=== PATIENT | male | born 1965 | race Caucasian/White ===

== ENCOUNTER 2020-09-23 15:45 | Inpatient (IN) | payer BC ==
[~2020-09-23] VITALS: Ht 193 cm; Wt 92.6 kg
--- NOTE | 2020-09-23 21:50 | NUR ---
PT ARRIVED AT APPROXIMATELY 2009 TO THE CCU. PT WAS BROUGHT DOWN BY ED RN AND BOX SPRING MAKER VIA STRETCHER WITH ALL BELONGINGS. PT WAS ON 2L O2 NC AND WAS STILL DROWSY. PT WAS MOVED OVER TO CCU BED WITHOUT DIFFICULTY. PT WAS MILDY RESTLESS AND WAS REPOSITIONING IN BED AND TURNING BUT WAS STILL DROWSY AND NOT ANSWERING QUESTIONS. IV FLUIDS AND MEDICATIONS WERE STARTED (SEE NOV). PT WAS GIVEN PRN DEXTROSE AT 2027 DUE TO A BLOOD SUGAR OF 64. PT BLOOD SUGAR WAS CHECKED AGAIN AT 2049 AND WAS 113. PT JENKINS TEMP HAS REMAINED 98.3 AND IS ON ROOM AIR WITH SATURATIONS AROUND 95%. PT BRIEFLY WOKE DURING THE ADMISSION AND GAVE SIMPLE ONE WORD ANSWERS BUT QUICKLY RETURNED TO SLEEP AND HAS REMAINED ASLEEP/DROWSY. NO FURTHER NEEDS ASSESSED AT THIS TIME, WILL CONTINUE PLAN OF CARE. CALL LIGHT WITHIN REACH, BED IN LOWEST POSITION. IV FLUIDS AND MEDICATIONS INFUSING ORDERED.
--- NOTE | 2020-09-23 22:51 | NUR ---
PT IN BED SLEEPING, PT BRIEFLY WAKES BUT ONLY MUMBLES/GROANS AND GOES BACK TO SLEEP. PT STILL REPOSITIONING HIMSELF IN BED WELL BY ROLLING OVER AND CHANGING POSITIONS IN BED. BLOOD GLUCOSE RECHECKED AND WAS WITHIN NORMAL LIMITS (87). PT SPO2 AT 95% WHILE ON ROOM AIR, JENKINS TEMP 98.3. NO FURTHER NEEDS ASSESSED AT THIS TIME, IV FLUIDS INFUSING AT ORDERED RATE, WILL CONTINUE PLAN OF CARE. CALL LIGHT WITHIN REACH, BED IN LOWEST POSITION.
--- NOTE | 2020-09-23 23:49 | NUR ---
PT LAYING IN BED SLEEPING. IV FLUIDS INFUSING ORDERED. NEW BAG OF KCL STARTED (BAG 12/14). PT BRIEFLY WOKE AND FOLLOWED A SIMPLE COMMAND TO STRAIGHTEN ARM FOR IV FLUIDS. PT THEN QUICKLY RETURNED BACK TO SLEEP. SPO2 AT 98% ON ROOM AIR, JENKINS TEMPERATURE AT 98.4. PT STILL REPOSITIONING HIMSELF IN BED. PT IN NO APPARENT DISTRESS AT THIS TIME. WILL CONTINUE PLAN OF CARE. CALL LIGHT WITHIN REACH, BED IN LOWEST POSITION.
--- NOTE | 2020-09-24 00:30 | NUR ---
THIS RN IN TO ASSESS PT. PT SLEEPING IN BED, STILL DROWSY AND WAKING ONLY BRIEFLY TO VOICE. IV POTASSIUM COMPLETE AND IVF INFUSING AT ORDERED RATE (SEE MAR). PT ON ROOM AIR WITH AN SPO2 OF 99%. JENKINS TEMP AT 98.5. PT IS IN NO APPARENT DISTRESS AT THIS TIME. WILL CONTINUE PLAN OF CARE, CALL LIGHT WITHIN REACH, BED IN LOWEST POSITION.
--- NOTE | 2020-09-24 03:14 | NUR ---
PT SLEEPING IN BED AT THIS TIME. RESPIRATIONS EVEN AND UNLABORED, PT SNORING. SPO2 AT 95% ON ROOM AIR, JENKINS TEMP 98.4. PT LEFT UNDISTURBED AT THIS TIME AND IS IN NO APPARENT DISTRESS, WILL CONTINUE PLAN OF CARE.
--- NOTE | 2020-09-24 04:24 | NUR ---
IN TO ASSESS PT. PT ABLE TO WAKE TO HIS NAME AND ANSWER ONE WORD ANSWERS. PT ORIENTED TO SELF, LOCATION, AND MONTH BUT NOT EVENT. WHEN ASKED HOW HE FELT PT MUMBLED AND DID NOT SPEAK COHERENTLY. WHEN ASKED IF PT WAS IN PAIN PATIENT WAS ABLE TO ANSWER NO. PT ABLE TO FOLLOW COMMANDS SUCH REACHING UP WITH HANDS, WIGGLING DIGITS, TAKE DEEP BREATHES, AND FOLLOW MY FINGERS WITH HIS EYES. PT QUICKLY WENT BACK TO SLEEP AFTER ASSESSMENT. SPO2 AT 94% ON ROOM AIR, JENKINS TEMP AT 98.5. PT IN NO APPARENT DISTRESS AND IS NOW SLEEPING AGAIN IN BED. CALL LIGHT IN REACH, BED IN LOWEST POSITION. WILL CONTINUE PLAN OF CARE.
--- NOTE | 2020-09-24 06:20 | NUR ---
PT SLEEPING IN BED. RESPIRATIONS EVEN AND UNLABORED, PT SNORING. SPO2 AT 95% ON ROOM AIR. JENKINS TEMP AT 98.6 F. PT LEFT UNDISTURBED, WILL CONTINUE PLAN OF CARE.
--- NOTE | 2020-09-24 07:30 | NUR ---
REPORT RECIEVED, PATIENT IS ASLEEP. NO DISTRESS NOTED.
--- NOTE | 2020-09-24 08:00 | NUR ---
ASSESSMENT DONE, IS NOW AWAKE, ALERT AND COOPERATIVE. DOES NOT REMEMBER CHAIN OF EVENTS YESTERDAY. TALKED WITH PATIENT ABOUT POC FOR DAY IS UNDERSTANDING. IVF PATENT. JENKINS CATH PATENT. C/O RIGHT KNEE PAIN, WILL UPDATE MD REGARDING KNEE PAIN. WATER GIVEN, DENIES NAUSEA.
--- NOTE | 2020-09-24 10:00 | NUR ---
Spoke with Tarik. He lives in [place] in an RV he build himself. He denies steps or issues getting into his RV. He works at [employer]. We discussed his drug use and + tox screen for meth., Marijuana, alcohol. He also had mushrooms on his person. Discussed Peer to Peer support from . He declines any contact. He plans on dc to home an states his friend Mian Lay will assist him if needed. . His mom is listed as his emergency contact, he states she lives in [place] and would not be able to assist him. He has no memory of last night. Plans on dc to home and returning to work.
--- NOTE | 2020-09-24 11:00 | NUR ---
Called [facility] and spoke with Shanell. She requests face sheet and H&P she schedule appt to establish care and call back with time and PCP name.
--- NOTE | 2020-09-24 11:43 | NUR ---
HAS BEEN ASLEEP MOST OF THE MORNING. RESP EVEN AND NON-LABORED. HOB ELEVATED TO APPROX 40 DEGREES. TV ON , CALL LIGHT NEXT TO PATIENT.
--- NOTE | 2020-09-24 12:00 | NUR ---
ALICE TAMEZ DC'D AND EMPTIED FOR 250 ML OF CONCENTRATED URINE. UP TO CHAIR FOR LUNCH. IS STABLE ON FEET.
--- NOTE | 2020-09-24 12:30 | NUR ---
TOOK LUNCH WELL. DENIES DIZZINESS. IVF-LR AT 125 ML/HR.
--- NOTE | 2020-09-24 12:50 | NUR ---
REPORT TO MED-SURG. MONITOR DC'D EARLIER.
--- NOTE | 2020-09-24 13:30 | NUR ---
PT REPORT FROM KANE ARROYO INCLUDED: Pt moved to [facility] from CCU today to continue monitoring his lab values and watch for any s/sx withdrawal. Pt denies pain and nausea at this time. Pt denies anxiety and dizziness. Pt alert and oriented, and reports "feeling pretty good". Pt assessment completed, VSS, 1400 CBG was 93. Pt appears calm and comfortable, sitting up, reclined in chair. Table and call light within reach, pt watching TV.
--- NOTE | 2020-09-24 13:30 | NUR ---
PT REPORT FROM KANE ARROYO INCLUDED: Pt transfered over here from CCU today. Pt being monitored for CBG, hypothermia, and any s/sx withdrawals. Pt has been alert and oriented and calm and cooperative since arriving on the unit. Pt currently up to the chair, filling out paperwork from Kathy OROPEZA for a PCP. Table and call light within reach.
--- NOTE | 2020-09-24 14:00 | NUR ---
ASSESSMENT + CBG Pt denies pain and nausea at this time. Pt denies anxiety and dizziness. Pt alert and oriented, and reports "feeling pretty good". Pt assessment completed, VSS, 1400 CBG was 93. Pt appears calm and comfortable, sitting up, reclined in chair. Table and call light within reach, pt watching TV.
--- NOTE | 2020-09-24 14:40 | NUR ---
PT ALERT, ORIENTED AND SITTING IN CHAIR WATCHING RV. PT STATES HE IS MUCH BETTER, RECOUNTED SOME OF HIS STORY. PT THANKED ME FOR COMING IN, LEFT G.POST AND BLESSING. WILL FOLLOW
--- NOTE | 2020-09-24 14:52 | NUR ---
Appt scheduled for Sep 29 at 3:[address] Wilson.
--- NOTE | 2020-09-24 15:15 | NUR ---
ROUNDING Pt in room, reclining in chair, eyes closed, breathing even and unlabored. Table and call light within reach.
--- NOTE | 2020-09-24 16:10 | NUR ---
ROUNDING Pt in room, reclining in chair, eyes closed, breathing even and unlabored. Table and call light within reach.
--- NOTE | 2020-09-24 17:00 | NUR ---
ROUNDING Pt in room, reclining in chair, visiting with friend. Pt denies pain and nausea at this time. Pt IV was beeping, so I fixed it. Table and call light within reach.
--- NOTE | 2020-09-24 18:00 | NUR ---
ROUNDING Pt wants to ambulate with his friend in the halls. Pt IV disconnected and pt given gown to cover his backside. Pt steady on his feet, denies dizziness. Table and call light within reach.
--- NOTE | 2020-09-24 18:04 | NUR ---
PATIENT AWAKE IN CHAIR, VISITOR IN ROOM. VITALS AND I&OS CHARTED. LARGE AMOUNT OF URING ON BATHROOM FLOOR, ON TOILET AND AROUND SHOWER DRAIN, EDUCATED PATIENT ON USE OF URINAL, PATIENT UNDERSTANDS. CALL LIGHT IN REACH, NO OTHER NEEDS AT THIS TIME
--- NOTE | 2020-09-24 19:35 | NUR ---
SHIFT REPORT RECEIVED FROM ANALIA CATHERINE AT BEDSIDE, pt RESTING QUIETLY IN BED WITH EYES CLOSED. RR EVEN AND UNLABORED. IV FLUIDS INFUSING AT 125MLS/HR, pt APPEARS RELAXED AT THIS TIME. CALL LIGHT IN REACH. BOARD UPDATED.
--- NOTE | 2020-09-24 20:40 | EKG ---
[facility] [address] [place], [place] [address] Signed Sinus bradycardia with premature supraventricular complexes j point elevation, elias waves Prolonged QT Abnormal ECG No previous ECGs available Confirmed by REENA OVALLES DO ([id number]) on 09/24/2020 8:40:04 PM Electronically Signed By: REENA OVALLES DO 09/24/202039 PATIENT NAME: KETTYDAVEBESSIE Electrocardiogram DATE OF : 61 PHYSICIAN: REENA OVALLES DO REPORT #: [id number] REPORT IS CONFIDENTIAL AND NOT TO BE RELEASED WITHOUT AUTHORIZATION
--- NOTE | 2020-09-24 21:00 | NUR ---
assessment complete, scheduled meds given (see emar). prn tylenol given for 5/10 pain in knee. left ac site leaking, site discontinued, catheter tip intact. iv fluids infusing via right ac, site wnl. pt denies nausea, accucheck 120. no further needs, pt denies need to void, call light in reach.
--- NOTE | 2020-09-24 23:56 | NUR ---
new bag iv fluids hung, site wnl. pt up in room with cynthia booth to void. pt denies additional needs at this time.
--- NOTE | 2020-09-25 02:45 | NUR ---
SCHEDULED ACCUCHECK COMPLETE, RESULT 130'S. NO NEW CHANGES OR CONCERNS. PRN TYLENOL GIVEN FOR 6/10 RIGHT KNEE PAIN. IV FLUIDS INFUSING, SITE WNL. CALL LIGHT IN REACH, NO FURTHER NEEDS.
--- NOTE | 2020-09-25 07:00 | NUR ---
SHIFT REPORT FROM GLADYS ARROYO INCLUDED: Pt had an uneventful evening. Pts VSS and A&O all night. Pt voiding quantity sufficient.
--- NOTE | 2020-09-25 08:00 | NUR ---
MED PASS + ASSESSMENT Pt med pass completed, pt able to take all meds without difficulty. Pt denies pain and nausea at this time. Pt had his breakfast and reports "feeling good" today. Pt in bed, table and call light within reach.
[2020-09-25] MEDS ORDERED: FREESTYLE FREE1 EAC1 MISC (09:04)
[2020-09-25] MEDS ORDERED: FREESTYLE LITE1 EAC1 TD (09:04)
--- NOTE | 2020-09-25 09:10 | NUR ---
Spoke with Tarik. He denies needs for dc. Friend, Elijah, is on her way to take him home.
--- NOTE | 2020-09-25 10:26 | NUR ---
ROUNDING Pt up to bathroom with CURRICULUM AND INSTRUCTION SPECIALIST. Call light within reeach.
--- NOTE | 2020-09-25 11:08 | NUR ---
PT SITTING ON SIDE OF BED, WAITING FOR DC TO HAPPEN. GAVE BLESSING WILL FOLLOW
== END 2020-09-25 11:00 | disposition home or self-care (01) | DRG 922 ==
LOC: ED 15:45 → CCU 18:51 → MS 09-24 13:15
PROVIDERS: ADMIT Student in an Organized Health Care Education/Training Program; ATTEND Student in an Organized Health Care Education/Training Program
DX: T68.XXXA Hypothermia, initial encounter (principal); G92 Toxic encephalopathy; M62.82 Rhabdomyolysis; Z20.822 Contact with and (suspected) exposure to COVID-19; F10.10 Alcohol abuse, uncomplicated; F17.200 Nicotine dependence, unspecified, uncomplicated; D72.829 Elevated white blood cell count, unspecified; E16.2 Hypoglycemia, unspecified; X31.XXXA Exposure to excessive natural cold, initial encounter
CPT/HCPCS: 36415; 51702; 71045; 73560; 80048; 80053; 81001; 82550; 82803; 83735; 84484; 85025; 85384; 85610; 85730; 93005; 93010; 99285-25; C9113; C9803; J2060; J2310; J3411; J3480; J7030; J7121; U0003

== ENCOUNTER 2021-06-23 05:07 | Emergency (ER) | payer OTHER ==
[~2021-06-23] VITALS: Ht 193 cm; Wt 97.5 kg
[~2021-06-23 05:07] MED LIST: FREESTYLE FREE1 EAC1 MISC; FREESTYLE LITE1 EAC1 TD
--- NOTE | 2021-06-23 19:16 | EKG ---
[facility] [address] [place] [address] Signed Normal sinus rhythm Possible Left atrial enlargement Nonspecific T wave abnormality Abnormal ECG When compared with ECG of 23-SEP-2020 16:27, Significant changes have occurred Confirmed by REENA OVALLES DO ([id number]) on 06/23/2021 7:16:34 PM Electronically Signed By: REENA OVALLES DO 06/23/21 191 PATIENT NAME: BESSIE MARCANO Electrocardiogram DATE OF : 61 PHYSICIAN: REENA OVALLES DO REPORT #: [id number] REPORT IS CONFIDENTIAL AND NOT TO BE RELEASED WITHOUT AUTHORIZATION
== END 2021-06-23 12:56 | disposition short-term general hospital (02) ==
LOC: ED 05:07
PROC: 0T2BX0Z Change Drainage Device in Bladder, External Approach (ICD-10-PCS; principal; 2021-06-23)
DX: T25.122A Burn of first degree of left foot, initial encounter (principal); T24.132A Burn of first degree of left lower leg, initial encounter; T31.21 Burns involving 20-29% of body surface with 10-19% third degree burns; A41.9 Sepsis, unspecified organism; R65.20 Severe sepsis without septic shock; T31.0 Burns involving less than 10% of body surface; R33.9 Retention of urine, unspecified; M54.50 Low back pain, unspecified; M25.511 Pain in right shoulder; D72.829 Elevated white blood cell count, unspecified; Z20.822 Contact with and (suspected) exposure to COVID-19; Z23 Encounter for immunization; E87.6 Hypokalemia; R74.01 Elevation of levels of liver transaminase levels; F17.200 Nicotine dependence, unspecified, uncomplicated; Y90.0 Blood alcohol level of less than 20 mg/100 ml; X19.XXXA Contact with other heat and hot substances, initial encounter
CPT/HCPCS: 51702; 70450; 71045; 72100; 73630; 80053; 81001; 82553; 83605; 85025; 90471; 90714; 93005; 93010; 99285-25; G0480; J2060; J3370; J7030; J7060; U0003